=== PATIENT | male | born 1995 | race Caucasian/White ===

== ENCOUNTER 2017-01-01 02:54 | Emergency (ER) | payer BC ==
[~2017-01-01] VITALS: Ht 177.8 cm; Wt 72.6 kg
[2017-01-01 02:55] VITALS: BP 138/83
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
[2017-01-01 06:20] VITALS: BP 138/83
== END 2017-01-01 06:15 | disposition home or self-care (01) ==
LOC: EDBD 02:54 → EMR 05:12
DX: F10.920 Alcohol use, unspecified with intoxication, uncomplicated (principal)
CPT/HCPCS: 99284